=== PATIENT | female | born 2000 | race Caucasian/White ===

== ENCOUNTER 2021-08-07 19:48 | Inpatient (IN) | payer OTHER ==
[~2021-08-07] VITALS: Ht 167.6 cm; Wt 77.1 kg
[2021-08-07 21:10] LABS: BILIRUBIN NEGATIVE (NEGATIVE); BLOOD NEGATIVE Ery/uL (NEGATIVE); CLARITY CLEAR (CLEAR); COLOR YELLOW (YELLOW); GLUCOSE (U) NORMAL (NORMAL); HCT 42.3 % (37.0-47.0); HGB 14.1 g/dl (12.5-16.0); LEUKOCYTES NEGATIVE Leu/uL (NEGATIVE); MCH 28.4 pg (25.0-31.0); MCHC 33.3 g/dL (32.0-36.0); MCV 85.3 fL (78.0-100.0); MPV 10.7 fL (6.0-9.5); NITRITE NEGATIVE (NEGATIVE); PROTEIN NEGATIVE (NEGATIVE); RBC 4.96 M/uL (4.20-5.40); RDW 14.5 % (11.5-14.0); SPECIFIC GRAVITY 1.025 (1.001-1.030); UROBILINOGEN 0.2 mg/dL (0.2-1.0); WBC 10.9 K/uL (4.0-10.5); pH 6.5 (5.0-9.0)
[2021-08-07 21:11] LABS: ECSTASY (MDMA) NEGATIVE (NEGATIVE); MARIJUANA (THC) NEGATIVE (NEGATIVE)
[2021-08-07 21:12] LABS: AMPHETAMINES NEGATIVE (NEGATIVE); BARBITURATES NEGATIVE (NEGATIVE); METHADONE NEGATIVE (NEGATIVE); OPIATES NEGATIVE (NEGATIVE); OXYCODONE NEGATIVE (NEGATIVE)
[2021-08-09 07:51] LABS: HCT 32.3 % (37.0-47.0); HGB 10.8 g/dl (12.5-16.0); MCH 28.9 pg (25.0-31.0); MCHC 33.4 g/dL (32.0-36.0); MCV 86.4 fL (78.0-100.0); MPV 10.5 fL (6.0-9.5); RBC 3.74 M/uL (4.20-5.40); RDW 14.5 % (11.5-14.0)
[2021-08-09] MEDS ORDERED: PRENATAL FORMU1 EACH PO (07:51)
[2021-08-09] MEDS ORDERED: LANOLIN HYDROUS TOP (07:51)
[2021-08-09] MEDS ORDERED: IBUPROFEN800 MG PO (07:51)
[2021-08-09] MEDS ORDERED: COLACE100 MG PO (07:51)
[2021-08-09] MEDS ORDERED: ZOLOFT50 MG PO (07:51)
[2021-08-09] MEDS ORDERED: FEOSOL325 MG PO (08:31)
== END 2021-08-10 13:30 | disposition home or self-care (01) | DRG 805 ==
LOC: FOD 19:48 → FOB 19:49 → FOD 20:37 → FOB 20:38 → FOD 20:38 → FNUR 20:38 → FOB 20:39
PROVIDERS: Obstetrics & Gynecology; ADMIT Specialist
PROC: 10E0XZZ Delivery of Products of Conception, External Approach (ICD-10-PCS; principal; 2021-08-07)
PROC: 0KQM0ZZ Repair Perineum Muscle, Open Approach (ICD-10-PCS; 2021-08-07)
PROC: 3E033VJ Introduction of Other Hormone into Peripheral Vein, Percutaneous Approach (ICD-10-PCS; 2021-08-07)
PROC: 3E0R3BZ Introduction of Anesthetic Agent into Spinal Canal, Percutaneous Approach (ICD-10-PCS; 2021-08-07)
PROC: 4A1HXCZ Monitoring of Products of Conception, Cardiac Rate, External Approach (ICD-10-PCS; 2021-08-07)
PROC: 3E02340 Introduction of Influenza Vaccine into Muscle, Percutaneous Approach (ICD-10-PCS; 2021-08-09)
DX: O69.81X0 Labor and delivery complicated by cord around neck, without compression, not applicable or unspecified (principal); U07.1 COVID-19; Z37.0 Single live birth; O70.20 Third degree perineal laceration during delivery, unspecified; O98.52 Other viral diseases complicating childbirth; Z3A.40 40 weeks gestation of pregnancy; Z23 Encounter for immunization
CPT/HCPCS: 36415; 80305; 81003; 90686; J2405; J7120; U0002